=== PATIENT | female | born 1950 | race Caucasian/White ===

== ENCOUNTER 2017-02-14 11:58 | Emergency (ER) | payer BC ==
[2017-02-14] MEDS ORDERED: HYDROcodone/Acetaminophen 10/325 mg Tablet ONE (12:21)
[2017-02-14] MEDS ORDERED: Ibuprofen 600 MG TAB ONE (12:22)
--- NOTE | 2017-02-14 13:09 | RAD ---
FACIAL BONE RADIOGRAPHS: Date: 02-14-17 Provided Clinical History: Nasal deformity status post injury. FINDINGS: There is no evidence for displaced facial fracture. The paranasal sinuses appear clear. IMPRESSION: As above. POS: OFF
== END 2017-02-14 12:56 | disposition home or self-care (01) ==
LOC: MADERS 11:58
DX: S01.511A Laceration without foreign body of lip, initial encounter (principal); I10 Essential (primary) hypertension; Z79.82 Long term (current) use of aspirin; Z79.899 Other long term (current) drug therapy; W17.89XA Other fall from one level to another, initial encounter
CPT/HCPCS: 70150